=== PATIENT | male | born 1970 | race Caucasian/White ===

== ENCOUNTER 2016-10-29 16:12 | Emergency (ER) | payer MEDICARE, OTHER | END 2016-10-29 18:02 | disposition home or self-care (01) | LOC: FER 16:12 | DX: T80.219A Unspecified infection due to central venous catheter, initial encounter (principal); N18.6 End stage renal disease; Z79.01 Long term (current) use of anticoagulants; Z79.82 Long term (current) use of aspirin; Z79.899 Other long term (current) drug therapy; Z99.2 Dependence on renal dialysis; Y84.8 Other medical procedures as the cause of abnormal reaction of the patient, or of later complication, without mention of misadventure at the time of the procedure | CPT/HCPCS: 99283 ==

== ENCOUNTER 2021-04-19 13:03 | Emergency (ER) | payer MEDICARE, OTHER ==
[~2021-04-19] VITALS: Ht 188 cm; Wt 98.0 kg
[2021-04-19 14:01] LABS: BASOPHIL 0.5 % (0-2); EOSINOPHIL 0.6 % (0-5); HCT 35.8 % (42.0-52.0); LYMPHOCYTE 3.2 % (15-48); MCH 28.8 pg (25.0-31.0); MCHC 30.7 g/dL (32.0-36.0); MCV 93.7 fL (78.0-100.0); MONOCYTE 4.7 % (0-12); MPV 10.6 fL (6.0-9.5); NEUTROPHIL 89.9 % (41-80); NRBC 0; PLT 148 K/uL (150-400); RBC 3.82 M/uL (4.70-6.00); RDW 17.7 % (11.5-14.0); WBC 11.5 K/uL (4.0-10.5)
[2021-04-19 14:13] LABS: INR 1.25 (0.9-1.2); PTT 29.9 SECONDS (24.4-34.7)
[2021-04-19 14:34] LABS: ALBUMIN 3.4 g/dL (3.4-5.0); BILIRUBIN - TOTAL 0.3 mg/dL (0.2-1.0); CREATININE 11.66 mg/dL (0.67-1.17); GLOBULIN (CALCULATION) 4.6 g/dL; MAGNESIUM 2.7 mg/dL (1.8-2.4)
[2021-04-19 14:40] LABS: POTASSIUM 7.1 mmol/L (3.5-5.1)
== END 2021-04-19 18:00 | disposition other institution (70) ==
LOC: FER 13:03
PROVIDERS: Emergency Medicine
DX: J96.01 Acute respiratory failure with hypoxia (principal); J81.0 Acute pulmonary edema; N18.6 End stage renal disease; E87.70 Fluid overload, unspecified; E83.41 Hypermagnesemia; E87.5 Hyperkalemia; Z88.0 Allergy status to penicillin; Z91.048 Other nonmedicinal substance allergy status; Z99.2 Dependence on renal dialysis; Z20.822 Contact with and (suspected) exposure to COVID-19
CPT/HCPCS: 36415; 36600; 71045; 80053; 82803; 83735; 84484; 85025; 85610; 85730; 93005; 94664; J0610; U0002